=== PATIENT | male | born 1980 | race Two or more races ===

== ENCOUNTER 2021-05-13 14:00 | Emergency (ER) | payer MEDICAID, OTHER ==
[~2021-05-13] VITALS: Ht 175.3 cm; Wt 112.9 kg
[2021-05-13 14:35] VITALS: BP 122/80
== END 2021-05-13 15:13 | disposition home or self-care (01) ==
LOC: ER 14:00
DX: G44.209 Tension-type headache, unspecified, not intractable (principal); F41.9 Anxiety disorder, unspecified; E78.5 Hyperlipidemia, unspecified
CPT/HCPCS: 70450